=== PATIENT | female | born 1960 | race Caucasian/White ===

== ENCOUNTER 2019-04-06 07:26 | Day surgery (SDC) | payer MEDICARE, MEDICAID ==
[2019-04-06] MEDS ORDERED: PROPOFOL INJ 200 MG/20 ML VIAL IV ONE ×2 (07:48→09:04)
[2019-04-06 09:57] VITALS: BP 134/69
--- NOTE | 2019-04-06 15:37 | Operative Report ---
Operative Report DATE OF SURGERY: 04/06/19 Operative Report: The risks, benefits and alternatives of the procedure including the risk of bleeding, perforation requiring surgery have been explained to the patient in detail and informed consent has been obtained. Patient is placed in a left, lateral decubital position. Timeout was called. Propofol medication is administered. Rectal examination is done which did not reveal any masses, tears or fissures. An Olympus videoscope was inserted into the patient's rectum. The scope was then carefully advanced all the way to the cecum. The cecum was identified by the usual anatomical landmarks including the ileocecal valve as well as the appendiceal office. Photodocumentation is obtained. The scope was then sequentially pulled back via the various segments of the colon including the ascending colon, hepatic flexure, transverse colon, splenic flexure, descending colon and finally into the rectosigmoid portions of the colon. Retroflexion maneuver is performed. PREOPERATIVE DIAGNOSIS: Positive Cologuard test POSTOPERATIVE DIAGNOSIS: Sigmoid colon polyp that was removed via snare polypectomy and retrieved. Splenic flexure polyp that is removed via biopsy forceps. Diverticulosis without any evidence of diverticulitis. Internal hemorrhoids OPERATION: Colonoscopy with snare polypectomy. Colonoscopy with biopsy SURGEON: ERNESTO SCHMITT ANESTHESIA: LMAC TISSUE REMOVED OR ALTERED: As noted above. COMPLICATIONS: None. ESTIMATED BLOOD LOSS: None. INTRAOPERATIVE FINDINGS: As noted above. PROCEDURE: Patient tolerated the procedure well. No immediate postprocedure complications are noted. Patient is discharged in good condition. Discharge date 04/06/2019. Discharge diet: Regular. Discharge activity: Regular. 2 to 3-week follow-up to discuss findings. Patient is instructed to call the office or proceed to the emergency room should he be any further questions. Wait on the pathology. 3 to 5-year surveillance colonoscopy.
== END 2019-04-06 09:55 | disposition home or self-care (01) ==
LOC: END 07:26
PROVIDERS: ATTEND Internal Medicine Gastroenterology
DX: Z12.11 Encounter for screening for malignant neoplasm of colon (principal); D12.5 Benign neoplasm of sigmoid colon; D12.6 Benign neoplasm of colon, unspecified; D12.4 Benign neoplasm of descending colon; K57.30 Diverticulosis of large intestine without perforation or abscess without bleeding; K64.8 Other hemorrhoids; D64.9 Anemia, unspecified; J45.909 Unspecified asthma, uncomplicated; I10 Essential (primary) hypertension; Z88.0 Allergy status to penicillin; E03.9 Hypothyroidism, unspecified; E78.5 Hyperlipidemia, unspecified; Z79.51 Long term (current) use of inhaled steroids; Z79.899 Other long term (current) drug therapy
CPT/HCPCS: 45380; 88305 ×2; J2704; 811

== ENCOUNTER → 2020-05-02 | Outpatient (CLI) | payer MEDICARE, MEDICAID ==
--- NOTE | 2020-05-02 10:25 | WOMENS IMAGING REPORT ---
EXAM DESCRIPTION: U/S ABDOMEN COMPLETE W/DOPPLER IMAGES COMPLETED DATE/TIME: 05/02/2020 8:21 am REASON FOR STUDY: R74.8 ABNORMAL LEVELS OF OTHER SERUM ENZYMES Z12.31 ENCNTR SCREEN MAMMOGRAM FOR M ALIGNANT NEOPLASM OF SON COMPARISON: None. TECHNIQUE: Dynamic and static grayscale images acquired of the abdomen and recorded on PACS. Additio nal selected color Doppler and spectral images recorded. Note: Study does not meet criteria for complete doppler/duplex scan LIMITATIONS: None. FINDINGS: PANCREAS: Majority the pancreas is obscured by overlying bowel gas. LIVER: The liver is echogenic consistent with fatty infiltration. Normal size. No masses. LIVER VASCULATURE: Normal directional flow of the main portal vein and hepatic veins. GALLBLADDER: No stones. Normal wall thickness. No pericholecystic fluid. ULTRASOUND-DETECTED SINGH'S SIGN: Negative. INTRAHEPATIC DUCTS AND COMMON DUCT: CBD and intrahepatic ducts normal caliber. No filling defects. INFERIOR VENA CAVA: Normal flow. AORTA: No aneurysm. RIGHT KIDNEY:Normal size. Normal echogenicity. No solid or suspicious masses. No hydronephrosis. No c alcifications. LEFT KIDNEY: Normal size. Normal echogenicity. No solid or suspicious masses. No hydronephrosis. No calcifications. SPLEEN: Normal size. No solid masses. PERITONEAL AND PLEURAL SPACES: No ascites or effusions. OTHER: No other significant finding. IMPRESSION: Hepatic steatosis. No other significant findings. TECHNICAL DOCUMENTATION: JOB ID: [id number] 2010 [employer]- All Rights Reserved Reading location - IP/workstation name: [email or web address]
--- NOTE | 2020-05-02 11:12 | WOMENS IMAGING REPORT ---
EXAM DESCRIPTION: BILAT SCREENING MAMMO W/CAD IMAGES COMPLETED DATE/TIME: 05/02/2020 8:22 am REASON FOR STUDY: Z12.31 ENCOUNTER FOR SCREENING MAMMOGRAM FOR MALIGNANT NEOPLASM OF BREAST Z12.31 ENCNTR SCREEN MAMMOGRAM FOR MALIGNANT NEOPLASM OF SON COMPARISON: None available EXAM PARAMETERS: Standard craniocaudal and mediolateral oblique views of each breast recorded using digital acquisition. Read with the assistance of CAD. .[facility] [employer] Trimming Machine Operator Version 9.2 LIMITATIONS: None. FINDINGS: Findings present which are benign by mammographic criteria. No suspicious masses, calcifi cations or architectural distortion. Pertinent benign findings: Benign bilateral breast parenchymal calcifications. Multiple benign appea ring low-density well-circumscribed subcentimeter mammographic masses bilaterally Benign mammographic findings may include one or more of the following: Smooth masses, popcorn/rim/co arse calcifications, asymmetries, post-procedure changes, and lesions with long-standing stability. IMPRESSION: BENIGN MAMMOGRAPHIC FINDINGS. BIRADS 2 BREAST DENSITY: a. The breasts are almost entirely fatty. BIRAD: ASSESSMENT: 2 BENIGN FINDING(S) RECOMMENDATION: ROUTINE SCREENING Please continue yearly bilateral screening mammography/tomosynthesis in April 2021 COMMENT: The patient has been notified of the results by letter per [place] requirements. Additional no tification policies are in place for contacting patient with suspicious or incomplete findings. Quality ID #[id number]: The [employer] recommends an annual screening mammogram for women aged 40 years or over. This facility utilizes a reminder system to ensure that all patients receive reminder letters, and/or direct phone calls for appointments. This includes reminders for routine scr eening mammograms, diagnostic mammograms, or other Breast Imaging Interventions when appropriate. Th is patient will be placed in the appropriate reminder system. TECHNICAL DOCUMENTATION: FINDING NUMBER: (1) ASSESSMENT: (1) JOB ID: [id number] 2010 [employer]- All Rights Reserved Reading location - IP/workstation name: [email or web address]
== END ==
LOC: WI 07:16
PROVIDERS: ATTEND Nurse Practitioner Family
DX: Z12.31 Encounter for screening mammogram for malignant neoplasm of breast (principal); R74.8 Abnormal levels of other serum enzymes; K76.0 Fatty (change of) liver, not elsewhere classified
CPT/HCPCS: 76700; 77067; 93976

== ENCOUNTER 2020-05-17 13:28 | Emergency (ER) | payer MEDICARE, MEDICAID ==
[2020-05-17 13:38] VITALS: BP 135/63
--- NOTE | 2020-05-17 14:14 | ER Document Report ---
HPI - HPI Time Seen by Provider: 05/17/20 14:07 Pain Level: 4 Context: Patient is a 59-year-old female with history of osteoarthritis who presents to the emergency department with a chief complaint of bilateral knee pain with the right greater than the left. Patient states that she normally uses walking sticks to walk and last night when she went to go on her walk she ended up having increased pain. Patient also states that when she went up to walk up her stairs, she ended up having pain to the medial side of her right knee. Patient also states that her "knees sometimes buckle." - ROS Systems Reviewed and Negative: Yes All other systems reviewed and negative - REPRODUCTIVE Reproductive: DENIES: : - MUSCULOSKELETAL Musculoskeletal: REPORTS: Extremity pain - Bilateral knee. DENIES: Swelling - DERM Skin Color: Normal Skin Problems: None Past Medical History - Social History Smoking Status: Never Smoker Frequency of alcohol use: None Drug Abuse: None Family History: Reviewed & Not Pertinent - Past Medical History Cardiac Medical History: Reports: Hx Hypertension Denies: Hx Coronary Artery Disease, Hx Heart Attack Pulmonary Medical History: Reports: Hx Asthma Denies: Hx Bronchitis, Hx COPD, Hx Pneumonia Neurological Medical History: Denies: Hx Cerebrovascular Accident, Hx Seizures Musculoskeletal Medical History: Reports Hx Arthritis - OSTEO KNEE, JAW, BACK Psychiatric Medical History: Reports: Hx Depression - Immunizations Hx Diphtheria, Pertussis, Tetanus Vaccination: Yes Vertical Provider Document - CONSTITUTIONAL Agree With Documented VS: Yes Exam Limitations: No Limitations General Appearance: No Apparent Distress - INFECTION CONTROL TRAVEL OUTSIDE OF THE [place] IN LAST 30 DAYS: No - HEENT HEENT: Atraumatic, Normocephalic, PERRLA - NECK Neck: Normal Inspection - RESPIRATORY Respiratory: Breath Sounds Normal, No Respiratory Distress - CARDIOVASCULAR Cardiovascular: Regular Rate, Regular Rhythm Pulses: Normal: Radial - MUSCULOSKELETAL/EXTREMETIES Musculoskeletal/Extremeties: FROM, Tender - Bilateral knees, mainly on right, No Edema. negative: Eccymosis - NEURO Level of Consciousness: Awake, Alert, Appropriate Motor/Sensory: No Motor Deficit, No Sensory Deficit - DERM Integumentary: Warm, Dry, No Rash Course - Re-evaluation Re-evalutation: 05/17/20 16:38 X-ray shows mild patello-femoral degenerative joint changes. Lower extremity normal. We will give the patient a knee immobilizer and crutches. Capillary refill less than 3 seconds. No vascular compromise noted. Follow-up precautions were given. Verbal discharge instructions were given to the patient. They verbalized understanding. They are stable for discharge. - Vital Signs Vital signs: Temp Pulse Resp BP Pulse Ox 99.6 F 63 18 135/63 H 96 05/17/20 13:37 05/17/20 13:37 05/17/20 13:37 05/17/20 13:37 05/17/20 13:37 Procedures - Immobilization Right Knee Pre-Proc Neuro Vasc Exam: Normal Immobilizer type: Knee immobilizer Performed by: RN Post-Proc Neuro Vasc Exam: Normal, Unchanged from pre-exam Alignment checked and good: Yes Discharge - Discharge Clinical Impression: Bilateral knee pain Qualifiers: Chronicity: chronic Qualified Code(s): M25.561 - Pain in right knee Condition: Stable Disposition: HOME, SELF-CARE Instructions: Use of Crutches ([facility]), Knee Immobilizing Splint ([facility]) Additional Instructions: You were seen today in the emergency department for pain in both your knees but mostly in your right knee. Please wear the knee immobilizer splint to help you stabilize your knee. Use the crutches to help you get around. Follow-up with orthopedics in regards to this visit. Referrals: DEAN CORONA FNP-C [Primary Care Provider] - Follow up in 3-5 days LAURA CASIANO MD [ACTIVE STAFF] - Follow up as needed GROVER PORTILLO MD [ACTIVE PROVISIONAL STAFF] - Follow up as needed SOCO WILSON JR, DO [ACTIVE PROVISIONAL STAFF] - Follow up as needed
--- NOTE | 2020-05-17 14:53 | RADIOLOGY REPORT (SQ) ---
EXAM DESCRIPTION: KNEE BILATERAL 1-2 VIEWS IMAGES COMPLETED DATE/TIME: 05/17/2020 2:37 pm REASON FOR STUDY: bilateral knee pain COMPARISON: None. NUMBER OF VIEWS: Two views. TECHNIQUE: AP and lateral standing bilateral knees. LIMITATIONS: None. FINDINGS: AP and lateral views of each knee shows small posterior patellar spurs. There is no joint effusion. The medial and lateral joint spaces appear well maintained. IMPRESSION: Mild patellofemoral degenerative joint changes bilaterally. TECHNICAL DOCUMENTATION: JOB ID: [id number] 2010 [employer]- All Rights Reserved Reading location - IP/workstation name: [email or web address]
== END 2020-05-17 17:01 | disposition home or self-care (01) ==
LOC: ER 13:28
DX: M25.561 Pain in right knee (principal); M25.562 Pain in left knee; I10 Essential (primary) hypertension; J45.909 Unspecified asthma, uncomplicated
CPT/HCPCS: 99283